=== PATIENT | male | born 1940 | race Caucasian/White ===

== ENCOUNTER 2024-06-02 15:27 | Emergency (ER) | payer OTHER, BC ==
[2024-06-02 15:34] VITALS: BMI 31.1
[2024-06-02 16:58] LABS: EOS % 3.1 % (0-4.5); HEMATOCRIT 24.9 % (35.4-49); HEMOGLOBIN 7.3 GM/dL (11.7-16.9); LYMPH % 11.9 % (8-40); MCHC 29.3 g/dl (32.0-35.9); MEAN CELL VOLUME 65.7 fl (80-96); MEAN PLT VOLUME 9.6 fl (7.5-11.1); MONO % 9.5 % (3.8-10.2); NEUT % 74.5 % (42.8-82.8); PLATELET COUNT 246 10^3/uL (134-434); RBC 3.79 M/mm3 (4.00-5.60); WHITE BLOOD COUNT 8.8 K/mm3 (4.0-10.0)
[2024-06-02 17:06] LABS: POTASSIUM 4.7 mmol/L (3.5-5.1)
[2024-06-02 17:09] LABS: ALBUMIN 3.2 g/dl (3.4-5.0); BLOOD UREA NITROGEN 32.8 mg/dL (7-18); CALCIUM 8.5 mg/dL (8.5-10.1); MAGNESIUM 2.7 mg/dL (1.8-2.4)
[2024-06-02 17:10] LABS: MCH 19.3 pg (25.7-33.7)
[2024-06-02 17:12] LABS: CREATININE 1.3 mg/dL (0.55-1.3)
[2024-06-02 17:14] LABS: BILIRUBIN,TOTAL 0.2 mg/dL (0.2-1); TOT PROT 6.2 g/dl (6.4-8.2)
[2024-06-02 17:17] LABS: N-TERMINAL BNP 968.8 pg/ml (5-450)
[2024-06-02 17:21] LABS: ACTIVATED PTT 25.4 SECONDS (25.2-36.5); INR 0.89 (0.83-1.09); PROTHROMBIN TIME (PATIENT) 10.3 SEC (9.7-13.0)
[2024-06-02 18:36] LABS: ANISOCYTOSIS 2+; MACROCYTOSIS 0
[2024-06-02 18:47] VITALS: BP 136/66; PULSE 83; RESP 18; TEMP 98.3
[2024-06-02] MEDS ORDERED: ACETAMINOPHEN 500 MG TABLET (FP) ONE (19:03)
[2024-06-02] MEDS: ACETAMINOPHEN 500 MG TABLET (FP) PO ONE (19:09)
[2024-06-02] MEDS ORDERED: LIDOCAINE 4% PATCH TP ONE (19:10)
[2024-06-02] MEDS: LIDOCAINE 4% PATCH TP ONE (19:17)
[2024-06-03] MEDS ORDERED: LIDOCAINE PATCH REMOVAL MC SCH (07:00)
== END 2024-06-02 21:49 | disposition home or self-care (01) ==
LOC: JER 15:27
DX: J90 Pleural effusion, not elsewhere classified (principal); R06.02 Shortness of breath; M79.89 Other specified soft tissue disorders; Z20.822 Contact with and (suspected) exposure to COVID-19
CPT/HCPCS: 0241U-QW; 36415; 71045-TC-FY; 71275-TC; 80053; 83735; 83880; 84484; 85025; 85379; 85610; 85730; 93005; 93010; 99285-25; Q9967

== ENCOUNTER 2025-02-09 07:13 | Day surgery (SDC) | payer OTHER, BC ==
[2025-01-08 13:53] VITALS: BMI 27.5
[2025-02-09] MEDS ORDERED: LIDOCAINE HCL/PF 2% SDV 5ML VIAL ONE (11:19)
[2025-02-09] MEDS ORDERED: PROPOFOL 20 ML ONE (11:19)
[2025-02-09] MEDS ORDERED: DEXAMETHASONE SOD PHOSPHATE 4 MG/1 ML VIAL ONE (11:42)
[2025-02-09] MEDS ORDERED: ONDANSETRON 4 MG/2 ML VIAL ONE (12:18)
[2025-02-09] MEDS ORDERED: DEXTROSE 5%-0.45% SALINE 1,000 ML IV SCH (12:30)
[2025-02-09] MEDS ORDERED: ONDANSETRON 4 MG/2 ML VIAL IVPUSH PRN (12:36)
[2025-02-09] MEDS ORDERED: LACTATED RINGERS SOLUTION 1,000 ML IV SCH (12:45)
[2025-02-09] MEDS ORDERED: ACETAMINOPHEN INJECTION 100 ML ONE (12:46)
[2025-02-09] MEDS: ACETAMINOPHEN 1000 MG/100 ML BAG IVPB ONE (12:55)
[2025-02-09 16:51] VITALS: BP 132/73; PULSE 62; RESP 20; TEMP 97.1
== END 2025-02-09 16:45 ==
LOC: JASU-SURG 07:13
PROVIDERS: ATTEND Urology
PROC: 0VT08ZZ Resection of Prostate, Via Natural or Artificial Opening Endoscopic (ICD-10-PCS; principal; 2025-02-09 11:00)
PROC: 0T9B30Z Drainage of Bladder with Drainage Device, Percutaneous Approach (ICD-10-PCS; 2025-02-09 11:00)
DX: N40.1 Benign prostatic hyperplasia with lower urinary tract symptoms (principal); R33.8 Other retention of urine
CPT/HCPCS: 82962; 86850; 86900; 86901; 88305-TC; 94760; C2627